=== PATIENT | male | born 1975 | race Caucasian/White ===

== ENCOUNTER 2024-12-11 14:33 | Emergency (ER) | payer MEDICAID, OTHER ==
[~2024-12-11] VITALS: Ht 170.2 cm; Wt 79.5 kg
[~2024-12-11 14:33] MED LIST: DIL100C PO; LAMO100T2 PO; ONDA4TAB6 PO; PANT-47 PO
[2024-12-11 14:55] VITALS: TEMP 98.2
--- NOTE | 2024-12-11 15:00 | Physician Documentation ---
History of Present Illness ~ Chief Complaint: Foreign body Stated Complaint: LEG WOUND RIGHT LEG Time Seen by MD: 16:34 Primary Medical Doctor: Dominic MARCELO This is a 49-year-old male who presents with a wound to his right lateral leg caused by falling and striking a wooden pallet, patient is concerned that he may have a piece of wood stuck in his leg. Tetanus Within 5 Years: Yes Medication Reconciliation Allergies: Coded Allergies: Penicillins (Unverified Allergy, Intermediate, 12/11/24) codeine (Unverified Allergy, Intermediate, 12/11/24) hydrocodone bit (Unverified Allergy, Intermediate, 12/11/24) Scheduled Cephalexin*Monohydrate* (Keflex*), 1 CAP PO QID Ondansetron Hcl (Zofran), 1 TAB PO Q6H Pantoprazole Sodium (PROTONIX tablet), 1 TAB PO DAILY Phenytoin Sodium Extended Cap* (Dilantin Cap*), 0 PO TID, (Reported) Miscellaneous Medications Lamotrigine* (Lamictal*), 0 PO, (Reported) Past Medical History Past Medical History: Seizures Past Surgical History: appendectomy Other Past Surgical History: Hernia Alcohol Use: None Drug Use: none Lives with: S/O Lives In: Home Review of Systems ROS As stated above in the HPI, otherwise all systems are reviewed and negative. Physical Exam Vital Signs: Temperature: 98.2, Source: Temporal, Heart Rate: 84, Respiratory Rate: 18, BP: 138/102, Pulse Oximetry: 98, Weight: 79.550 Physical Exam VITALS: Reviewed and as above. GENERAL: Alert, nontoxic appearing, no apparent distress. RESPIRATORY: No increased work of breathing, no respiratory distress, speaking in full clear sentences SKIN: Puncture wound and swelling to right lateral lower thigh, small dark area consistent with foreign body at center of wound Procedures Skin Foreign Body Removal : Site: Right lower lateral thigh Anesthesia: Lidocaine w/ Epi Blade Size: 11 Supplies/Prep: betadine prep, dressing applied, irrigated Foreign Body Removal: completely Tolerated Procedure Well?: yes, no complications Procedure Note After the area was cleaned and prepped area was anesthetized utilizing three mL of lidocaine with epinephrine achieving good anesthesia. Wound tract expanded with a 11 blade and a 13 mm sliver of wood removed from right lower thigh, area thoroughly irrigated and no retained foreign body visualized. Patient tolerated procedure well without complications. Progress Results/Orders Results/Orders Orders - CHAIM EID VP COMPLIANCE Femur 2 Views (12/11/24 15:23) Ultrasound Soft Tissue (12/11/24 17:07) Laceration/I&D Tray Set Up (12/11/24 17:07) Completed Orders - CHAIM EID VP COMPLIANCE Femur 2 Views (12/11/24 15:23) Ketorolac Trometh 15mg/Ml Vial (Toradol (12/11/24 17:10) Lidocaine 1% W/Epi 1:100,000 (Xylocaine (12/11/24 17:10) Tetanus/Pertuss/Diph Acell/Pf (Boostrix (12/11/24 17:10) Cephalexin Capsule (Keflex Capsule) (12/11/24 19:20) Vital Signs 12/11/24 12/11/24 12/11/24 14:55 17:50 17:52 Temp 98.2 Pulse 84 87 Resp 18 18 16 B/P (MAP) 138/102 145/100 (115) Pulse Ox 98 98 O2 Flow Rate 0 EKG/XRAY/CT/US/VASC/MRI Bone/Soft Tissue X-Ray (Ext.) : Additional Comment Exam: FEMUR 2 VIEWS CLINICAL INDICATION: Pain; Possible FB TECHNIQUE: 5 radiographic views of the right femur were obtained. Comparison: None FINDINGS/IMPRESSION: There is no evidence of acute fracture or dislocation. The visualized joint space is well maintained. The alignment is anatomical. There is no radiopaque foreign body. Electronically Signed by:MEHRDAD COBOS MD Date & Time: 12/11/241556 Dictated by: MEHRDAD COBOS MD Dictation date and time: 12/11/241556 I have reviewed and agree with the radiology report. I have reviewed and interpreted the imaging as: No radiopaque foreign body Medical Decision Making Findings This 49-year-old male presented with a puncture wound to his right lower lateral thigh with concern for retained foreign body after falling against a wooden pallet, physical exam demonstrated an area of tenderness with possible foreign body visualized in the puncture wound, an x-ray of the area demonstrated no fracture or radiopaque foreign body however based on physical exam the wound was examined by myself with point of care ultrasound demonstrating shadowing interpreted by myself to be a foreign body in the superficial tissue of the right thigh in the area of the puncture wound. The wound area was anesthetized with 1% lidocaine with epinephrine and wound track was slightly enlarged and explored, a 13 mm wood was removed from the wound successfully intact, wound was irrigated and examined demonstrating no evidence of retained foreign body. Patient received tetanus booster and placed on course of oral antibiotics due to dirty nature of the injury. Patient is otherwise well-appearing with no other injuries on physical exam. Patient appropriate for outpatient follow up and discharged with a course of oral antibiotics, patient provided home care instructions, return to care precautions, and follow up instructions which he verbalized understanding of. Differential Dx:Considerations: Include: Abrasion, Avulsion, Contusion, Laceration, Fracture, Hematoma, Neurovascular injury, Retained foreign body Departure Time of Disposition: 19:14 Disposition: 01 HOME / SELF CARE / HOMELESS Impression: Primary Impression: Puncture wound of right thigh with foreign body Qualified Codes: S71.141A - Puncture wound with foreign body, right thigh, initial encounter Condition: Improved Discharge Instructions: Puncture Wound Additional Instructions: Keep the area clean dry and covered, please take the antibiotics as prescribed. Watch for signs of infection such as increasing swelling, redness, or purulent discharge, or if you develop a fever. If signs of infection develop please return to the emergency department. Please follow up with your primary care p bien[facility] in the next few days. Please return to the emergency department for any new or worsening concerning symptoms including but not limited to signs of infection. Referrals: NO PRIMARY CARE PROVIDER (PCP) Prescriptions Cephalexin*Monohydrate* (Keflex*) 500 Mg Capsule 1 CAP PO QID for 7 Days, #28 CAP Prov: CHAIM EID 12/11/24 Education Educated: Patient Educated regarding: diagnosis, treatment, prognosis, need for follow up Signature Scribe Signature: No scribe Attestation: The note accurately reflects work and decisions made by me.ELIZABETH Huffman 12/12/24 10:37 CHAIM EID Dec 11, 2024 15:00
--- NOTE | 2024-12-11 15:59 | RADIOLOGY REPORT ---
CLINICAL INDICATION: Pain; Possible FB TECHNIQUE: 5 radiographic views of the right femur were obtained. Comparison: None FINDINGS/IMPRESSION: There is no evidence of acute fracture or dislocation. The visualized joint space is well maintained. The alignment is anatomical. There is no radiopaque foreign body.
[2024-12-11 17:50] VITALS: BP 145/100; PULSE 87; O2SAT 98
[2024-12-11 17:52] VITALS: RESP 16
[2024-12-11] MEDS: ketorolac trometh 15mg/ml vial 15 MG/ML ML IM ONE (17:52)
[2024-12-11] MEDS: TETanus/Pertussis (Acell)/Diphther VAC/PF (Tdap-Adult) 0.5ml syringe IMVAC ONE (17:52)
[2024-12-11] MEDS: LIDOcaine 1% W/epiNEPHrine 1:100,000 20ml vial IJ ONE (17:53)
[2024-12-11] MEDS ORDERED: CEPH-585 PO (19:20)
== END 2024-12-11 19:31 | disposition home or self-care (01) ==
LOC: ER 14:34
DX: S71.141A Puncture wound with foreign body, right thigh, initial encounter (principal); Z88.0 Allergy status to penicillin; Z88.5 Allergy status to narcotic agent; Z88.8 Allergy status to other drugs, medicaments and biological substances; Z90.49 Acquired absence of other specified parts of digestive tract; W22.8XXA Striking against or struck by other objects, initial encounter; Y93.89 Activity, other specified; Y92.89 Other specified places as the place of occurrence of the external cause; Y99.8 Other external cause status
CPT/HCPCS: 10120; 73552; 96372; 99285; J1885; A6402